=== PATIENT | female | born 1980 | race Caucasian/White ===

== ENCOUNTER 2023-08-03 08:30 | Outpatient (RCR) | payer OTHER, SELFPAY ==
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
[2023-07-13 15:57] VITALS: BP 116/90; PULSE 90; RESP 14; TEMP 36.5
--- NOTE | 2023-07-14 16:51 | HO.PHP ---
Client's case has been opened and reviewed in treatment team.
--- NOTE | 2023-07-15 16:40 | HO.PHP ---
PHP staff member faxed over a referral for OP therapy and Med Management at the [facility] location. PHP staff member is awaiting a scheduled date and time for those appointments.
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
--- NOTE | 2023-07-20 16:11 | HO.PHP ---
PHP staff member received an Email from Magali from [facility] with Mckenzie's next scheduled appointment dates for OP therapy and Med Management. Mckenzie's OP therapy intake appointment is scheduled for August 03, 2023 at 10 AM with Jenniffer Hudson at [address] [place] [address], [place] [address]. Mckenzie's med provider appointment is scheduled for August 30, 2023 at 9 AM with Zhanna Jarquin via [facility].
--- NOTE | 2023-07-22 23:45 | P.PNPSP_ITS ---
Subjective Subjective Date of Service: 07/22/23 Reason For Visit: deprssive d/o,panic d/o Medication Compliance: Yes Side effects from medications: No Attending Groups: Yes Review of Systems Acute medical concerns: No Mental Status Exam Mental Status Exam Narrative: Alert, oriented, in no acute distress. Calm, cooperative, engaged, Energetic, some impulsive behaviors, No psychomotor agitation or neurovegetative retardation. Eye contact maintained. Mood labile, affect elevated no notable irritability or lability. Talkative, disruptive at moments, without pressured Thought process scattered, linear, coherent. Thought content related to stressors, executive dysfunction, feeling overwhelmed, denies helplessness, hopelessness or SI, intention or plan. Denies any aggressive ideation. No paranoia or delusional content elicited. No evidence of psychosis. Insight and judgment fair but adequate. Assessment & Plan Assessment & Plan (1) Mood disorder: Status: Acute Code(s): F39 - Unspecified mood [affective] disorder Assessment and Plan: 1. Episodic mood disorder (Unipolar vs Bipolar spectrum, r/o Cyclothymia 2. 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 (r/o adhd), temperament or other characterological contributions r/o SIMD (?overactivation/incr lability from antidepressant tx) (2) Other specified anxiety disorders: Status: Acute Code(s): F41.8 - Other specified anxiety disorders (3) Other impulse disorders: Status: Acute Code(s): F63.89 - Other impulse disorders Assessment and Plan: likely ADHD, combined type will rule out ofther disorders of impulse control (4) Attention and concentration deficit: Status: Acute Code(s): R41.840 - Attention and concentration deficit Assessment and Plan: r/o attentional/cognitive changes related to medical condition (hormonal changes, long covid) (5) PTSD (post-traumatic stress disorder): Status: Acute Code(s): F43.10 - Post-traumatic stress disorder, unspecified (6) Alcohol use: Status: Acute Code(s): Z78.9 - Other specified health status Assessment and Plan: r/o overuse/abuse Plan continue Prozac 40 mg qAM continue Wellbutrin XL 300 mg qAM increase Lamictal to 300 mg qd (at night) increase Ablify to 2.5-3 mg qd in evening (will check EKG and lower fluoxetine) start guanfacine ER 1 mg daily in AM as mood stabilizes will trial stimulant consider gabapentin 300 mg qhs PRN sleep hold off starting Adderall 5 mg Continue other regular medications for now - meclazine Pending routine lab work UDS, EKG as indicated MassPat reviewed Continue to monitor Patient educated on: diagnosis and medication risk/benefits Informed Consent: understands Reason for contiued partial hosp. stay Substantial Risk for: inability to function and med/psych decompensation Certification I certify that partial hospital treatment is medically necessary due to the symptoms and problems resulting from the patient's mental illness and the failure to treat the patient at the partial hospital level of care would likely result in the patient requiring inpatient psychiatric care which could not be prevented at a less intensive level of care. Total time managing care of this patient today __30__ minutes. Discharge Plan Discharge Attending provider: Ana Lilia Lin Additional Instructions: Mckenzie's OP therapy intake appointment is scheduled for August 03, 2023 at 10 AM with Jenniffer Hudson at [address] [place] [address]. Mckenzie's med provider appointment is scheduled for August 30, 2023 at 9 AM with Zhanna Jarquin via telehealth. Medications: New fluoxetine 40 mg capsule 40 mg PO QAM Qty: 20 0RF bupropion HCl 300 mg tablet extended release 24 hr 300 mg PO QAM Qty: 30 0RF dextroamphetamine-amphetamine [Adderall] 5 mg tablet 5 mg PO DAILY Qty: 20 0RF Rx Instructions: Partial Fill upon patient request. lisdexamfetamine 10 mg capsule 10 mg PO QAM Qty: 20 0RF Rx Instructions: Partial Fill upon patient request. gabapentin 300 mg capsule 300 - 600 mg PO BEDTIME PRN (Reason: sleep) Qty: 20 0RF guanfacine 1 mg tablet extended release 24 hr 1 mg PO DAILY@1700 Qty: 20 0RF aripiprazole 2 mg tablet 2 mg PO BEDTIME Qty: 20 0RF Continued meclizine 25 mg Tablet 25 mg PO BID PRN (Reason: Dizziness) Changed lamotrigine 100 mg Tablet 150 mg PO BID 30 Days Qty: 90 0RF Discontinued fluoxetine 60 mg Tablet 60 mg PO DAILY lurasidone [Latuda] 20 mg Tablet 20 mg PO DAILY Rx Instructions: must administer with food (at least 350 calories) bupropion HCl 450 mg Tablet Extended Release 24 Hr 450 mg PO DAILY Stand Alone Forms: Patient Portal Discharge page Print Language: Telugu
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
--- NOTE | 2023-07-28 16:35 | HO.PHP ---
[facility] staff member contacted Mckenzie and left a VM stating that she was granted approval through her insurance and is able to extend to program. Mckenzie was informed if she has any questions to contact the clinician back. Mckenzie reached out to [facility] staff member, in which she disclosed that she won't be able to attend program today due to having no transportation. [facility] staff member assessed any safety concerns. Mckenzie reported no safety concerns and will be here tomorrow.
--- NOTE | 2023-08-01 23:15 | HO.PHPPROGNO ---
Subjective Subjective Date of Service: 08/01/23 Reason For Visit: depressive d/o,panic d/o Interim History: Patient reports uneventful weekend. Calmer, did not feel triggered for a change . She had started on ADderall 5 mg last week, has been taking it daily. She reports no change, still feeling disorganized, misplacing items losing things (keys, bag) which frustrates her. Mood can get irritable situationally. She is taking Lamictal, Ablilify and Trileptal. Denies any adverse effects. Started Trileptal 2 or 3 nights ago. She is taking Abilify 5 mg at bedtime. Guanfacine has been helpful in the evening to settle in. Overall feels more balanced and admits she perhaps a bit less fidgety for an hour or 2 after taking the Adderall and guanfacine in [place] morning, but still complaining of disorganization I still cant focus . 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 I cant tell, overall I am doing better so I probably dont need it . For now will continue fluoxetine and maintain the dose at 10 mg until she follows up with her provider. She denies any hopelessness, SI. Irritability is improving, anxiety better managed. Sleep, appetite, and energy level stable. Medication Compliance: No Side effects from medications: No Attending Groups: Yes Review of Systems Acute medical concerns: No Mental Status Exam Mental Status Exam Narrative: Alert, oriented, in no acute distress. Calm, cooperative, engaged. No psychomotor agitation or neurovegetative retardation. Eye contact maintained. Mood labile, anxious, affect variable, brighter than expected, no noted irritability, lability, tearfulness. Speech normal. Thought process scattered, linear, coherent. Thought content related to stressors, executive dysfunction, denies hopelessness, denies SI, intention or plan. Denies any aggressive ideation. No paranoia or delusional content elicited. No evidence of psychosis. Insight and judgment fair but adequate. Assessment & Plan Assessment & Plan (1) Mood disorder: Status: Acute Code(s): F39 - Unspecified mood [affective] disorder (2) Other specified anxiety disorders: Status: Acute Code(s): F41.8 - Other specified anxiety disorders (3) Other impulse disorders: Status: Acute Code(s): F63.89 - Other impulse disorders (4) Attention and concentration deficit: Status: Acute Code(s): R41.840 - Attention and concentration deficit (5) PTSD (post-traumatic stress disorder): Status: Acute Code(s): F43.10 - Post-traumatic stress disorder, unspecified (6) Alcohol use: Status: Acute Code(s): Z78.9 - Other specified health status Plan decrease Prozac to 10 mg qAM continue Wellbutrin XL 300 mg qAM increase oxcarbazapine to 300 mg BID continue Lamictal 300 mg qhs continue Abilify to 5 mg qd in evening (will check EKG and lower fluoxetine) increase guanfacine ER 1 mg to BID (in AM and late afternoon/evening) discontinue gabapentin increase Adderall to 7.5-10 mg qd as tolerated (for now will limit to 3 times week) discontinue gabapentin Continue other regular medications - meclazine discontinued mediations: Latuda, gabapentin Still pending routine lab work, patient says she will do this this week UDS, EKG as indicated [facility] reviewed Continue to monitor Patient educated on: diagnosis and medication risk/benefits Informed Consent: understands Reason for contiued partial hosp. stay Substantial Risk for: stable for discharge Certification I certify that partial hospital treatment is medically necessary due to the symptoms and problems resulting from the patient's mental illness and the failure to treat the patient at the partial hospital level of care would likely result in the patient requiring inpatient psychiatric care which could not be prevented at a less intensive level of care. Total time managing care of this patient today __30__ minutes. Discharge Plan Discharge Attending provider: Ana Lilia Lin Additional Instructions: [facility] intake appointment is scheduled for August 03, 2023 at 10 AM with Jenniffer Hudson at [address] [place] [address], [place] [address]. [facility] provider appointment is scheduled for August 30, 2023 at 9 AM with Zhanna Jarquin via telehealth. Medications: New dextroamphetamine-amphetamine 10 mg tablet 10 mg PO DAILY Qty: 30 0RF Rx Instructions: Partial Fill upon patient request. fluoxetine 10 mg capsule 10 mg PO DAILY Qty: 30 0RF Continued meclizine 25 mg Tablet 25 mg PO BID PRN (Reason: Dizziness) aripiprazole [Abilify] 5 mg tablet 5 mg PO BEDTIME Qty: 30 0RF bupropion HCl 300 mg tablet extended release 24 hr 300 mg PO QAM Qty: 30 0RF guanfacine 2 mg tablet extended release 24 hr 2 mg PO QAM Qty: 30 0RF guanfacine 1 mg tablet extended release 24 hr 1 mg PO QPM Qty: 30 0RF Changed oxcarbazepine 300 mg tablet 300 mg PO BID 30 Days Qty: 60 0RF lamotrigine 100 mg Tablet 150 mg PO BID 30 Days Qty: 90 0RF Discontinued fluoxetine 60 mg Tablet 60 mg PO DAILY lurasidone [Latuda] 20 mg Tablet 20 mg PO DAILY Rx Instructions: must administer with food (at least 350 calories) bupropion HCl 450 mg Tablet Extended Release 24 Hr 450 mg PO DAILY Stand Alone Forms: Patient Portal Discharge page Patient Education: Mood Disorders (DC), ADHD in Adults (GEN) Print Language: Belizean
--- NOTE | 2023-08-02 23:46 | P.PNPSP_ITS ---
Subjective Subjective Date of Service: 08/02/23 Reason For Visit: depressive d/o,panic d/o Interim History: Patient seen for follow-up, anticipating discharge at the end of program tomorrow. ? Aside from ongoing issues with chronic inattentiveness, distractibility, executive dysfunction, she reports no acute issues or concerns. Medication compliant, medications well-tolerated. Denies any adverse effects.?Still not noticing much on Adderall 7.5 mg. She is able to increase dose to 10 mg, but is aware to not titrate beyond this dose and to stay here until she meets up with provider to discuss further titration if warranted. Mood is stable.? Denies any hopelessness or SI. Denies thoughts of harming self or others at this time. Denies any aggressive ideation or HI. Denies any paranoia or AH or VH. Sleep, appetite, energy stable. Medication Compliance: Yes Side effects from medications: No Attending Groups: Yes Review of Systems Acute medical concerns: No Mental Status Exam Mental Status Exam Narrative: Alert, oriented, in no acute distress. Calm, cooperative, engaged. No psychomotor agitation or neurovegetative retardation. Eye contact maintained. Mood calmer affect variable, bright, no noted irritability, lability, tearfulness. Speech normal. Thought process scattered, linear, coherent, more goal-directed. Thought content related to stressors, +executive dysfunction,denies any hopeless or SI, intention or plan. Denies any aggressive ideation. No paranoia or delusional content elicited. No evidence of psychosis. Insight and judgment fair but adequate. Assessment & Plan Assessment & Plan (1) Mood disorder: Status: Acute Code(s): F39 - Unspecified mood [affective] disorder (2) Other specified anxiety disorders: Status: Acute Code(s): F41.8 - Other specified anxiety disorders (3) Other impulse disorders: Status: Acute Code(s): F63.89 - Other impulse disorders (4) Attention and concentration deficit: Status: Acute Code(s): R41.840 - Attention and concentration deficit (5) PTSD (post-traumatic stress disorder): Status: Acute Code(s): F43.10 - Post-traumatic stress disorder, unspecified (6) Alcohol use: Status: Acute Code(s): Z78.9 - Other specified health status Plan Discharge from [facility] continue fluoxetine 10 mg qAM continue Wellbutrin XL 300 mg qAM continue Adderall at 10 mg qam PRN focus as tolerated (limit to 3-4 times a week) increase guanfacine ER to 1-2 mg qAM, as tolerated continue guanfacine ER 1 mg daily in late afternoon/early evening continue Trileptal to 300 mg BID continue Lamictal 300 mg qd continue Abilify 5 mg qd cancel Vyvanse since this wasn't started (still pending prior authorization) Discontinued medications: Latuda, gabapentin, Vyvanse (not started), Dose changes: fluoxetine (decreased from 60 to 10 mg), Wellbutrin decreased from 450 to 300 mg), Lamcital increased to 300 mg new medications: Abilify, guanfacine, Adderall Patient referred for neuropsych testing for ADHD (pt advised to contact insurance to check on coverage, also pt given contact information for [facility]) Refills sent to pharmacy Will defer further medication management to outpatient provider *Safety plan reviewed *Discharge Diagnoses reviewed with patient, as well as treatment course, discharge plan (including medication regime, medication management, potential side effects) as well as treatment rationale were also revisited *Discharge Diagnoses reviewed with patient, along with treatment course, discharge plan (including medication regime, medication management, potential side effects) as well as treatment rationale were also revisited *Discharge paperwork signed and given to patient, copy sent for scanning to chart Patient educated on: diagnosis and medication risk/benefits Informed Consent: understands Reason for contiued partial hosp. stay Substantial Risk for: stable for discharge Certification I certify that partial hospital treatment is medically necessary due to the symptoms and problems resulting from the patient's mental illness and the failure to treat the patient at the partial hospital level of care would likely result in the patient requiring inpatient psychiatric care which could not be prevented at a less intensive level of care. Total time managing care of this patient today __40__ minutes. Discharge Plan Discharge Attending provider: Ana Lilia Lin Additional Instructions: [facility] intake appointment is scheduled for August 03, 2023 at 10 AM with Jenniffer Hudson at [address] [place] [address], [place] [address]. [facility] provider appointment is scheduled for August 30, 2023 at 9 AM with Zhanna Jarquin via [employer]. Medications: New dextroamphetamine-amphetamine 10 mg tablet 10 mg PO DAILY Qty: 30 0RF Rx Instructions: Partial Fill upon patient request. fluoxetine 10 mg capsule 10 mg PO DAILY Qty: 30 0RF Continued meclizine 25 mg Tablet 25 mg PO BID PRN (Reason: Dizziness) aripiprazole [Abilify] 5 mg tablet 5 mg PO BEDTIME Qty: 30 0RF bupropion HCl 300 mg tablet extended release 24 hr 300 mg PO QAM Qty: 30 0RF guanfacine 2 mg tablet extended release 24 hr 2 mg PO QAM Qty: 30 0RF guanfacine 1 mg tablet extended release 24 hr 1 mg PO QPM Qty: 30 0RF Changed oxcarbazepine 300 mg tablet 300 mg PO BID 30 Days Qty: 60 0RF lamotrigine 100 mg Tablet 150 mg PO BID 30 Days Qty: 90 0RF Discontinued fluoxetine 60 mg Tablet 60 mg PO DAILY lurasidone [Latuda] 20 mg Tablet 20 mg PO DAILY Rx Instructions: must administer with food (at least 350 calories) bupropion HCl 450 mg Tablet Extended Release 24 Hr 450 mg PO DAILY Stand Alone Forms: Patient Portal Discharge page Patient Education: Mood Disorders (DC), ADHD in Adults (GEN) Print Language: Afghan
--- NOTE | 2023-08-12 23:51 | PM.EVENT ---
Event Note Date of Service: 08/13/23 Event Note: Patient had called looking for letter to support returning to work in late August, which was provided and left in RN box. 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 SHe says she also has other paperwork she would like this job specification writer to fill out. SHe is still waiting for new provider appointment in upcoming weeks. She has been tolerating Adderall but has not noticed much difference thus far on 5-7.5 mg. Has completed short script and would like to refill. Denies any rebound anxiety, agitation, irritability or insomnia. Script along with refills on all medications. Med compliant, denies any adverse effects, is well tolerated. Denies SI/HI/AH/VH. Time Spent With Patient Time: Total time managing care of this patient today _15___ minutes.
== END 2023-08-03 23:59 | disposition home or self-care (01) ==
LOC: HO.PHPA 08:30
PROVIDERS: Visit Provider Psychiatry & Neurology Psychiatry
DX: F39 Unspecified mood [affective] disorder (principal); F41.8 Other specified anxiety disorders; F63.89 Other impulse disorders; F43.10 Post-traumatic stress disorder, unspecified; F90.9 Attention-deficit hyperactivity disorder, unspecified type; F10.90 Alcohol use, unspecified, uncomplicated; Z79.899 Other long term (current) drug therapy
CPT/HCPCS: 90791; 90853

== ENCOUNTER 2025-02-05 09:28 | Outpatient (AMB) | payer OTHER, SELFPAY ==
--- NOTE | 2025-02-05 09:31 | A.OFFPC_ITS ---
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 Required: No Accompanied by: Self / Same As Patient Allergies Penicillins (PCN) Allergy (Unknown, Verified 02/05/25 09:32) UNKNOWN Medication List - Last Reconciled 02/05/25 by Shari Bowen MD clobetasol 0.05% topical BID risankizumab-rzaa (Skyrizi) mg subcut tirzepatide (Mounjaro) mg subcut QWEEK Tobacco use date assessed: 02/05/25 Dental Screening Dental Screen Date: 02/05/25 Did you have a dental visit in the last 12 months?: No Did you have a dental problem in the last 6 months where you did not have access to dental care?: No Was dental information given to patient?: Patient has dentist HPI HPI Comments History of Present Illness Details The patient is a 45 year old female presenting to [facility]. Obesity and Type 2 Diabetes Mellitus: The patient has a history of prediabetes with a prior A1c of 6.4%, which progressed to type 2 diabetes with an A1c of 6.7%. She was referred to an obesity medicine specialist, Dr. Mims, and has been seeing PA in his practice. She has been on Mounjaro since May, starting at a low dose and recently increasing to 5 mg about three weeks ago. This treatment has resulted in a significant weight loss of 53 pounds, from 245 lbs to her current weight of 192 lbs over eight months. Her A1c has improved to 5.7%. She reports occasional nausea with Mounjaro but tolerates it well. Her diet consists of one meal a day, and she acknowledges needing to increase her water intake. Her target weight is 155 lbs. Psoriasis: The patient is being treated for psoriasis and recently started Skyrizi, having taken her second dose. Following the second dose, she experienced severe stomach pain, nausea for three days, and episodes of watery brown diarrhea. She induced vomiting a few times due to the nausea. She denied any chills or fever. These symptoms occurred after taking her Mounjaro on a Tuesday and the Skyrizi on the following Tuesday. These symptoms have since resolved. Gastrointestinal Issues: The patient reports a change in bowel habits since starting Mounjaro, with bowel movements occurring every two to three days instead of daily. The stool is sometimes hard. She notes difficulty passing stool. Her water intake is low, which she acknowledges needs improvement. Hair Loss: The patient reports hair thinning, which she states was present before starting her current medications Medications: - Mounjaro 5 mg injectable for type 2 di abetes and weight loss. - Skyrizi injectable for psoriasis, take n every three months. Social History: - Employment: Patient has a new job with a split shift schedule, working with [employer]. 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 - She reports feeling mentally better du e to the change in work environment, which is less toxic. - Exercise: Patient is more active with her new job and is not sitting at a desk. [facility] Medical History (Updated 02/06/25 @ 17:27 by Shari Bowen MD) Hair loss Vitamin D deficiency Routine gynecological examination Psoriasis Vertigo Major depression, recurrent Type 2 diabetes mellitus in patient with obesity Surgical History (Updated 02/05/25 @ 10:27 by Shari Bowen MD) H/O bilateral salpingectomy H/O: hysterectomy History of left salpingectomy Family History (Updated 02/05/25 @ 10:56 by Shari Bowen MD) Paternal Grandfather Colon cancer Other Bipolar disorder Diabetes mellitus Melanoma Renal cell carcinoma Social History Household Members: Spouse Housing: House Patient Tobacco Use Status: Former Tobacco user Tobacco use type: Cigarette Years Smoked: 10 years e-Cigarette/Vaping Use: Former Use service: No Current occupational status: employed 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 1. Little interest or pleasure in doing things: more than half the days 2. Feeling down, depressed, or hopeless: more than half the days 3. Trouble falling or staying asleep, or sleeping too much: several days 4. Feeling tired or having little energy: more than half the days 5. Poor appetite or overeating: more than half the days 6. Feeling bad about yourself - or that you are a failure or have let yourself or your family down: several days 7. Trouble concentrating on things, such as reading the newspaper or watching television: several days 8. Moving or speaking so slowly that other people could have noticed. Or the opposite - being so fidgety or restless that you have been moving around a lot more than usual: not at all 9. Thoughts that you would be better off or of hurting yourself in some way: not at all Total score: 11 Depression Screening Interpretation: Positive Depression Screening Done: Yes 57555 - PHQ-9 Billing: Yes Source: Developed by Drs. Angel Martins, Joy Collins, Jose Carlos Reynoso and colleagues, with an educational aaron from [employer]. AUDIT C Alcohol Use Questionnaire (AUDIT-C) 1. How often do you have a drink containing alcohol?: Monthly or less 2. How many drinks containing alcohol do you have on a typical day when you are drinking?: 1 or 2 3. How often do you have six or more drinks on one occasion?: Never Total Score: 1 Review of Systems Narrative Review of Systems - Constitutional: . Denies fever or chills. - Gastrointestinal: per hpi - Integumentary: Reports hair thinning, which started before current medications. - Psychiatric: Reports improved mood and less stress since changing jobs. Physical exam (Primary Care) Vital Signs: Last Vital Signs Temp 96.9 F 02/05/25 09:33 Pulse 68 02/05/25 09:33 Resp 16 02/05/25 09:33 BP 122/82 02/05/25 09:33 Pulse Ox 97 02/05/25 09:33 Oxygen Delivery Method Room Air 02/05/25 09:33 BMI result Body Mass Index 34.1 Tobacco/Smoking Status: Tobacco use Status Tobacco use date assessed 02/05/25 02/05/25 09:41 Patient Tobacco Use Status Former Tobacco user 02/05/25 09:41 Tobacco use type Cigarette 02/05/25 09:41 e-Cigarette/Vaping Use Former Use 02/05/25 09:41 PHQ-9: PHQ-9 Score PHQ-9: Total score 11 02/05/25 09:41 Depression Screening Interpretation: Positive Narrative Physical Exam - Vitals: Weight 192 lbs. - HEENT: Right and left ear canals are clear. Oropharynx is clear. - Lungs: Clear to auscultation bilaterally, no wheezing. - Cardiovascular: Regular rhythm noted on auscultation. - Abdomen: Non-tender, not distended, with normal bowel sounds. - Skin: Improved appearance of psoriasis on arms. Coding Level of Care Code Est Pt Level 4 (27546) Add On Problem Visit Only Diagnoses Type 2 diabetes mellitus in patient with obesity E11.9; E66.9 PTSD (post-traumatic stress disorder) F43.10 Mood disorder F39 Attention deficit hyperactivity disorder (ADHD), unspecified ADHD type F90.9 Attention deficit-hyperactivity disorder type: unspecified Additional Codes PHQ-9 - 90399 - PHQ-9 Billing: Yes ([id number]) Assessment & Plan Assessment & Plan (1) Type 2 diabetes mellitus in patient with obesity: Code(s): E11.9 - Type 2 diabetes mellitus without complications; E66.9 - Obesity, unspecified Category: Medical (2) PTSD (post-traumatic stress disorder): Code(s): F43.10 - Post-traumatic stress disorder, unspecified Category: Medical (3) Mood disorder: Comment: Episodic mood disorder (unipolar > bipolar) Code(s): F39 - Unspecified mood [affective] disorder Category: Medical (4) Attention-deficit hyperactivity disorder, unspecified type: Code(s): F90.9 - Attention-deficit hyperactivity disorder, unspecified type Category: Medical Qualifiers: Attention deficit-hyperactivity disorder type: unspecified Qualified Code(s): F90.9 - Attention-deficit hyperactivity disorder, unspecified type Plan Assessment and Plan 1. Re-establishing Care - The patient, a 45-year-old female, is re-establishing care. - She has made significant lifestyle and health improvements recently. - A physical exam is due in May and will be scheduled. 2. Type 2 Diabetes Mellitus & Obesity - The patient has had excellent results with Mounjaro, with her A1c decreasing from a peak of 6.7% to 5.7% and a 53-pound weight loss. - She will continue management with her obesity medicine specialist - She will continue Mounjaro 5mg 3. Psoriasis - The patient is on Skyrizi. - She experienced significant GI distress after her second dose, likely due to the combination with her recently increased Mounjaro dose. - She was advised to continue the Skyrizi and monitor symptoms. - If nausea occurs, she may try home remedies such as saul lozenges or tea. If worsened notify office. 4. Constipation - The patient reports decreased frequency of bowel movements. - The first step is to increase daily water intake to 64 ounces for one week to see if that regulates her bowel movements. - If there is no improvement, she can try Miralax twice a week and add a daily probiotic like Culturelle or Acidophilus. 5. Hair Loss - The patient is concerned about hair thinning. - Ordered labs including a thyroid panel, B12, magnesium, folic acid, and iron studies to rule out underlying deficiencies. - Recommended to start with a Biotin (Hair, Skin, and Nails) supplement - If that is not effective, she can consider Viviscal. 6. Health Maintenance - The patient is overdue for a mammogram, and a referral will be placed. - A referral will also be placed for a routine gynecological exam. - A GI consult will be placed for a screening colonoscopy, as she is now 45. - Prep options can be discussed with the specialist. Plan - Placed order for lab work today, including B12, thyroid panel, magnesium, folic acid, and iron studies to evaluate for causes of hair loss. - Recommended starting a Biotin (Hair, Skin, and Nails) supplement - Recommended to first increase water intake to 64 oz daily for one week to manage constipation. If symptoms persist, she may try Miralax twice weekly and add a daily probiotic. - Placed referral for a routine mammogram, as she is overdue. - Placed referral for a routine gynecology visit. - Placed referral for a GI consultation for a screening colonoscopy. - Patient will continue her Mounjaro and Skyrizi as prescribed and will continue to follow with her specialists for these conditions. Patient Instructions - Go for lab work today. We will call you with the results. - Continue taking your Mounjaro and Skyrizi medications as prescribed by your specialists. - For constipation, drink at least 64 ounces of water every day for one week. Please message me through the patient portal to let me know if this helps. If it does not, we can discuss trying Miralax. - For hair thinning, you can start taking an khxh-olr-lzrieiv Biotin supplement Orders: Orders MM screening mammo BI 02/05/25 Z12.31 - Encounter for screening mammogram for malignant neoplasm of breast Vitamin B12 02/05/25 E11.9 - Type 2 diabetes mellitus without complications, E55.9 - Vitamin D deficiency, unspecified, E66.9 - Obesity, unspecified, L65.9 - Nonscarring hair loss, unspecified Vitamin D 25-OH Total 02/05/25 E11.9 - Type 2 diabetes mellitus without complications, E55.9 - Vitamin D deficiency, unspecified, E66.9 - Obesity, unspecified TSH reflex Free T4 02/05/25 E11.9 - Type 2 diabetes mellitus without complications, E55.9 - Vitamin D deficiency, unspecified, E66.9 - Obesity, unspecified Magnesium 02/05/25 E11.9 - Type 2 diabetes mellitus without complications, E55.9 - Vitamin D deficiency, unspecified, E66.9 - Obesity, unspecified LDL Cholesterol Direct 02/05/25 E11.9 - Type 2 diabetes mellitus without complications, E55.9 - Vitamin D deficiency, unspecified, E66.9 - Obesity, unspecified, L65.9 - Nonscarring hair loss, unspecified Folate 02/05/25 E11.9 - Type 2 diabetes mellitus without complications, E55.9 - Vitamin D deficiency, unspecified, E66.9 - Obesity, unspecified IRON PROFILE 02/05/25 E11.9 - Type 2 diabetes mellitus without complications, E55.9 - Vitamin D deficiency, unspecified, E66.9 - Obesity, unspecified Comprehensive Met. Panel 02/05/25 E11.9 - Type 2 diabetes mellitus without complications, E55.9 - Vitamin D deficiency, unspecified, E66.9 - Obesity, unspecified Ferritin 02/05/25 E11.9 - Type 2 diabetes mellitus without complications, E55.9 - Vitamin D deficiency, unspecified, E66.9 - Obesity, unspecified Referrals COMBINE OPERATOR Referral Z01.419 - Encounter for gynecological examination (general) (routine) without abnormal findings Gastroenterology Referral Z12.11 - Encounter for screening for malignant neoplasm of colon, Z12.12 - Encounter for screening for malignant neoplasm of rectum Medications: Discontinued dextroamphetamine-amphetamine 10 mg Partial Fill upon patient request. Discontinued Reason: Patient Completed Course 10 mg PO DAILY 30 tabs 0RF aripiprazole (Abilify) Discontinued Reason: Patient Completed Course 5 mg PO BEDTIME 30 tabs 0RF bupropion HCl XL Discontinued Reason: Patient Completed Course 300 mg PO QAM 30 tabs 0RF guanfacine ER Discontinued Reason: Patient Completed Course 1 mg PO QPM 30 tabs 0RF in late afternoon/evening; as directed lamotrigine Discontinued Reason: Patient Completed Course 150 mg (1.5 x 100 mg) PO BID 30 days 90 tabs 0RF fluoxetine Discontinued Reason: Patient Completed Course 10 mg PO DAILY 30 caps 0RF as directed guanfacine ER Discontinued Reason: Patient Completed Course 2 mg PO QAM 30 tabs 0RF as directed oxcarbazepine Discontinued Reason: Patient Completed Course 300 mg PO BID 30 days 60 tabs 0RF
[2025-02-05 09:33] VITALS: BP 122/82; PULSE 68; RESP 16; TEMP 36.1; O2SAT 97; BMI 34.1
== END 2025-02-05 10:53 | disposition home or self-care (01) ==
LOC: HO.HMCHD 09:29
PROVIDERS: PCP Internal Medicine; Visit Provider Internal Medicine
DX: E11.9 Type 2 diabetes mellitus without complications (principal); E66.9 Obesity, unspecified; F43.10 Post-traumatic stress disorder, unspecified; F39 Unspecified mood [affective] disorder; F90.9 Attention-deficit hyperactivity disorder, unspecified type

== ENCOUNTER → 2025-02-05 09:28 | Outpatient (BNVA) | payer OTHER, SELFPAY | PROVIDERS: PCP Internal Medicine; Visit Provider Internal Medicine | DX: E11.9 Type 2 diabetes mellitus without complications (principal); E66.9 Obesity, unspecified; F43.10 Post-traumatic stress disorder, unspecified; F39 Unspecified mood [affective] disorder; F90.9 Attention-deficit hyperactivity disorder, unspecified type; Z87.891 Personal history of nicotine dependence | CPT/HCPCS: 96127 ==

== ENCOUNTER 2025-02-05 10:55 | Outpatient (REF) | payer OTHER, SELFPAY ==
[2025-02-05 13:39] LABS: Alanine Aminotransferase 23 U/L (0-31); Albumin Level 4.6 g/dL (3.5-5.0); Alkaline Phosphatase 79 U/L (39-117); Anion Gap 9 (12-20); Aspartate Amino Transferase 23 U/L (5-31); Blood Urea Nitrogen 11 mg/dL (9-16); Calcium 9.7 mg/dL (8.4-10.2); Carbon Dioxide 26 mmol/L (22-29); Chloride 109 mmol/L (96-108); Estimated Glomerular Filt Rate > 60; Iron 46 mcg/dL (30-160); Magnesium 2.2 mg/dL (1.6-2.6); Percent Iron Saturation 25 % (15-50); Potassium 3.8 mmol/L (3.3-5.1); Sodium 140 mmol/L (135-145); Total Iron Binding Capacity 182 mcg/dL (228-428); Total Protein 7.7 g/dL (6.5-8.0); Unsaturated Iron Binding 136 ug/dL
[2025-02-05 13:46] LABS: Ferritin 106 ng/mL (10-250)
[2025-02-05 14:01] LABS: Folate 3.6 ng/mL (> or = 4.0); Vitamin B12 397 pg/mL (200-900)
== END 2025-02-05 10:56 | disposition home or self-care (01) ==
LOC: HO.10HDL 10:55
PROVIDERS: Visit Provider Internal Medicine
DX: E11.9 Type 2 diabetes mellitus without complications (principal); E66.9 Obesity, unspecified; E55.9 Vitamin D deficiency, unspecified; L65.9 Nonscarring hair loss, unspecified
CPT/HCPCS: 36415; 80053; 82306; 82607; 82728; 82746; 83540; 83721; 83735; 84443